=== PATIENT | male | born 1990 | race Hispanic/Latino ===

== ENCOUNTER → 2025-02-28 14:22 | Outpatient (REF) | payer OTHER, SELFPAY ==
[2025-02-28 15:05] LABS: % Basophils 0.7 % (0-2); % Eosinophils 0.5 % (0-6); % Immature Granulocytes 0.6 % (0-0.5); % Lymphocytes 15.1 % (20.5-51.1); % Monocytes 5.4 % (1.7-9.3); % Neutrophils 77.7 % (42.2-75.2); Absolute Basophils 0.1 10^3/uL (0-0.2); Absolute Eosinophils 0.1 10^3/uL (0-0.7); Absolute Immature Granulocytes 0.1 10^3/uL (0-0.05); Absolute Lymphocytes 1.9 10^3/uL (1.2-3.4); Absolute Monocytes 0.7 10^3/uL (0.1-0.6); Absolute Neutrophils 9.6 10^3/uL (1.4-6.5); Hematocrit 41.9 % (39.0-52.0); Mean Corp Hgb Conc. 33.4 g/dL (33.0-37.0); Mean Corpuscular Hgb 28.9 pg (27.0-31.0); Mean Corpuscular Volume 86.4 fL (80.0-94.0); Mean Platelet Volume 9.2 fL (7.4-10.4); Nucleated Red Blood Cells % 0 % (-); Platelet Count 370 10^3/uL (130-400); Red Blood Cell Count 4.85 10^6/uL (4.70-6.10); Red Cell Dist. Width 13.3 % (11.5-14.5); White Blood Cell Count 12.3 10^3/uL (4.8-10.8)
[2025-02-28 15:18] LABS: Erythrocyte Sed Rate 33 mm/hour (0-20)
[2025-02-28 15:29] LABS: ALT (SGPT) 30 U/L (0-50); AST (SGOT) 19 U/L (17-59); Albumin 4.6 g/dl (3.5-5.0); Alkaline Phosphatase 111 U/L (38-126); Blood Urea Nitrogen 11 mg/dl (9-20); Calcium 9.8 mg/dl (8.4-10.2); Carbon Dioxide 27 mmol/L (22-30); Chloride 101 mmol/L (98-107); Glucose 92 mg/dl (70-99); Potassium 4.3 mmol/L (3.5-5.1); Sodium 140 mmol/L (135-145); Total Bilirubin 0.5 mg/dl (0.2-1.3); Total Protein 8.1 g/dl (6.3-8.2); eGFR > 60.00
[2025-03-01 17:22] LABS: Creatine Phosphokinase 85 U/L (55-170)
[2025-03-02 15:23] LABS: ANA, IgG Reflex to HEp-2 None Detected (None Detected)
[2025-03-02 15:25] LABS: Lyme Antibody Screen, EIA Negative (Negative)
[2025-03-03 08:26] LABS: Parvo B19 Ab, IgM 0.45 IV (<=0.89); Parvo Virus B19 Ab, IgG 0.55 IV (<=0.90)
== END ==
LOC: CLINIC 14:22
PROVIDERS: ATTENDING PHYSICIAN Nurse Practitioner Adult Health
DX: R21 Rash and other nonspecific skin eruption (principal); R50.9 Fever, unspecified
CPT/HCPCS: 80053; 82550; 85025; 85652; 86038; 86140; 86618; 86747; 86780

== ENCOUNTER 2025-03-03 11:51 | Inpatient (IN) | payer OTHER, SELFPAY ==
[2025-03-03] VITALS (13 sets, daily range): BP systolic 92–144; BP diastolic 67–96; BMI 30.1
--- NOTE | 2025-03-03 08:12 | ED.GENMED ---
History of Present Illness
General
Chief Complaint: Cardiac Symptoms
Source: patient
Exam Limitations: none
Time Seen by Provider: 03/03/25 07:52
Nursing documentation reviewed up to this point in time: agreed with
History of Present Illness
History of Present Illness:
Patient presents to ED secondary to persistent fever with night sweats and body ache over the past 10 days. Patient reports fever last night and taking Tylenol at 11 PM. Denies headache. Denies dizziness. Denies coughing. Denies sore throat.
Denies difficulty with urination. Denies nausea, vomiting, or diarrhea. Denies recent travel. Denies recent sick contact. Denies loss of appetite. Denies chest pain. Patient's recent history is significant for dental extraction 2 months ago.
Patient has been evaluated by his primary care physician on multiple occasions, including outpatient blood work. In light of patient's persistent symptoms, with development of rash, some painful, patient referred to ED for an evaluation and
potential admission for further evaluation and treatment.
Review of Systems
Review of Systems
Allergies reviewed?: Yes
All Other Systems: ROS reviewed and negative except as documented in HPI and ROS
Constitutional: Reports fever
EENT: Reports no symptoms; Denies mouth pain
Respiratory: Reports no symptoms; Denies cough or trouble breathing
Cardiac: Reports no symptoms; Denies chest pain or palpitations
ABD/GI: Reports no symptoms; Denies nausea, vomiting or diarrhea
: Reports no symptoms
Musculoskeletal: Reports muscle pain
Skin: Reports rash; Denies itching
Neurological: Reports no symptoms; Denies dizzy or headache
Phy Exam
Physical Exam
Physical Exam:
Physical Exam
General: no apparent distress, not acutely ill. afebrile
Head: nc/at. eomi
Neck: supple. no meningeal signs. normal posterior pharynx
Heart: s1/s2 regular rate and rhythm, no murmur.
Lungs: no acute respiratory distress. clear bilaterally
Abdomen: normal bowel sounds. not tender.
Neuro: alert and oriented x 3. no focal neurological deficits
Skin: multiple maculopapular rash noted over trunk/extremities, non-painful raised alex lesions noted over right anterior hess. painful macular lesion noted along lateral aspect of left foot, along 5th MTP, without
drainage.
Psychiatric: well kept. interactive and cooperative
Extremities: no edema. no calf tenderness.
Course
Orders/Labs/Results
Orders:
Orders
03/03/25 07:31
Electrocardiogram (*1) Urgent
Reason for Study: Abnormal EKG
EKG- Treatment ONCE
03/03/25 08:11
Urinalysis Reflex To Culture Urgent
Date Specimen was Collected: 03/03/25
Time Specimen was Collected: 08:17
CR Chest - 2 Views Urgent
Comment:
Reason For Exam: fever
03/03/25 08:15
Lactic Acid Q4H
Comment: CANCEL 2nd LACTIC ACID IF 1st LACTIC ACID IS LESS THAN 2
03/03/25 08:26
COVID-19 Antigen Urgent
Source: Nasal Swab
Complete Blood Count/With Diff Urgent
Comprehensive Metabolic Panel Urgent
Lactic Acid Q4H
Comment: CANCEL 2nd LACTIC ACID IF 1st LACTIC ACID IS LESS THAN 2
Blood Culture Q30M
AIMEE Source: Blood/Venous
Specimen Description:
Influenza A+B Rapid Molecular Urgent
AIMEE Source: Nasal Swab
Specimen Description:
03/03/25 08:27
Blood Culture Q30M
AIMEE Source: Blood/Venous
Specimen Description:
03/03/25 09:05
INFECTIOUS DISEASE CONSULT Routine
Consulting Provider: Conner Randolph
Was physician already notified: Yes
03/03/25 11:12
Admit/Transfer Patient As Directed
Co-Sign Provider:
Level of Care: Inpatient admission
Assign to:: Medical/Surgical
Physician / Group: True/hospitalist
Diagnosis: possible sepsis
Reason for Hospitalization: possible sepsis
Expected length of stay greater than two midnights?: Yes
ELOS- Estimated Length of Stay in days: 3
I certify the patient meets the requirements for IP care: Yes
Code Status As Directed
Resuscitation Status: Full Code
PRN Pain Medication Management As Directed
May give lesser potent ordered pain med per pt: Yes
preference::
Protocol:: Medication orders for pain may be administered in a
manner that supports deferring to patient preference
when the pt is:
- Requesting an ordered lesser potent pain medication.
Least to most potent pain medications are defined
as: acetaminophen < NSAID < tramadol < opioids
(morphine, oxycodone, hydromorphone).
- Requesting a lesser dose of the same medication IF
ORDERED.
- Requesting a less intrusive route of administration
if both routes are prescribed by the provider (PO <
IV).
Abnormal Lab Results
03/03/25
08:26
WBC 11.4 H 10^3/uL
(4.8-10.8)
Abs Immat Gran (auto) 0.1 H 10^3/uL
(0-0.05)
Absolute Neuts (auto) 8.5 H 10^3/uL
(1.4-6.5)
Absolute Monos (auto) 0.7 H 10^3/uL
(0.1-0.6)
Immature Gran % 0.7 H %
(0-0.5)
Lymphocytes % 17.5 L %
(20.5-51.1)
03/03/25 08:26
03/03/25 08:26
Vital Signs
Initial and Last Documented VS:
Initial Vital Signs
Temp Pulse Resp BP Pulse Ox
98.5 F 104 18 144/96 98
03/03/25 07:27 03/03/25 07:27 03/03/25 07:27 03/03/25 07:27 03/03/25 07:27
Last Documented Vital Signs
Temp Pulse Resp BP Pulse Ox
98.5 F 89 25 117/77 98
03/03/25 07:27 03/03/25 12:00 03/03/25 12:00 03/03/25 12:00 03/03/25 12:00
MDM/Problems Addressed
MDM/Problems Addressed:
In light of patient's persistent symptoms, despite outpatient workup, patient will be admitted for further evaluation and treatment.
Blood culture pending. If there is no clear focal source of infection, antibiotics will be withheld for now.
*Critical Care Note
Total Time (30-74mins, 75-104mins- exclusive of procedures): Not Applicable
ED Attending Note
-
Portions of this chart may have been created with voice recognition software.� Occasional wrong word or��sound alike� substitutions may have occurred due to the inherent limitations of voice recognition software.
Discharge Plan
Departure
Patient Disposition: Admit
Date of Disposition: 03/03/25
Time of Disposition: 08:58
Admit to: Med/Surg
Presentation/result/management discussed w/ accepting MD/DO: Hospitalist
Discharge Problem:
Fever
Interventions
Interventions:
*Risk Screen - Suicide Last Done: 03/03/25 07:27
*General Assessment Last Done: 03/03/25 07:27
*Neglect/Abuse Screening Last Done: 03/03/25 07:27
*ED- Fall Risk Assessment Last Done: 03/03/25 07:49
*ED COVID-19 Vaccine History Last Done: 03/03/25 07:49
ED- Pulmonary Assessment Last Done: 03/03/25 07:49
ED- Cardiac Assessment Last Done: 03/03/25 07:49
[2025-03-03 08:42] LABS: % Basophils 0.5 % (0-2); % Eosinophils 0.4 % (0-6); % Immature Granulocytes 0.7 % (0-0.5); % Lymphocytes 17.5 % (20.5-51.1); % Monocytes 6.3 % (1.7-9.3); % Neutrophils 74.6 % (42.2-75.2); Absolute Basophils 0.1 10^3/uL (0-0.2); Absolute Eosinophils 0.1 10^3/uL (0-0.7); Absolute Immature Granulocytes 0.1 10^3/uL (0-0.05); Absolute Monocytes 0.7 10^3/uL (0.1-0.6); Absolute Neutrophils 8.5 10^3/uL (1.4-6.5); Hematocrit 41.7 % (39.0-52.0); Hemoglobin 14.1 g/dL (13.0-18.0); Mean Corp Hgb Conc. 33.8 g/dL (33.0-37.0); Mean Corpuscular Hgb 28.9 pg (27.0-31.0); Mean Corpuscular Volume 85.5 fL (80.0-94.0); Nucleated Red Blood Cells % 0 % (-); Platelet Count 346 10^3/uL (130-400); Red Blood Cell Count 4.88 10^6/uL (4.70-6.10); Red Cell Dist. Width 13.2 % (11.5-14.5); White Blood Cell Count 11.4 10^3/uL (4.8-10.8)
[2025-03-03 08:52] LABS: COVID-19 Antigen Negative (Negative)
[2025-03-03 09:07] LABS: Lactic Acid 1.1 mmol/L (0.7-2.0)
[2025-03-03 09:08] LABS: ALT (SGPT) 31 U/L (0-50); AST (SGOT) 19 U/L (17-59); Albumin 4.1 g/dl (3.5-5.0); Alkaline Phosphatase 112 U/L (38-126); Blood Urea Nitrogen 11 mg/dl (9-20); Calcium 9.7 mg/dl (8.4-10.2); Carbon Dioxide 28 mmol/L (22-30); Chloride 104 mmol/L (98-107); Estimated Creatinine Clearance > 125 ml/min; Glucose 90 mg/dl (70-99); Potassium 4.4 mmol/L (3.5-5.1); Sodium 142 mmol/L (135-145); Total Bilirubin 0.7 mg/dl (0.2-1.3); Total Protein 7.5 g/dl (6.3-8.2); eGFR > 60.00
--- NOTE | 2025-03-03 10:14 | HPS.HSE ---
Family Physician
-
Family Physician: Adam Young
Chief Complaint
-
fever, night sweat, rash
History of Present Illness
HPI: 34 yo M without significant PMH p/w fever, night sweat, and body ache for ~12 days. He also noted development of erythematous rash throughout his body. Some rash are painful.
Patient's recent history is significant for dental extraction 2 months ago.
He was sent to the ED by the [facility] PCP for concern of subacute bacterial endocarditis.
Medical History
Past Medical History
Past Medical History: Reports None
Past Surgical History: Reports None
Social History
Tobacco: Non-smoker
Alcohol: Occasional
Personal:
Living: With Family
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
Family History
Family History: Not pertinent
Allergies / Home Medications
Allergies reflects when Allergies were last updated in [facility].
Home Medications with original date entered in [facility]
Allergy/Medication List:
Allergies
Allergy/AdvReac Type Severity Reaction Status Date / Time
Fish Containing Products Allergy Unknown Verified 03/03/25 07:26
Home Medications
No Meds [No Current Medications] 03/03/25
Review of Systems
-
Constitutional: Reports Fever
Skin: Reports See HPI
Physical Exam
Vital Signs
Vital Signs
Temp Pulse Resp BP Pulse Ox
36.9 C 92 24 92/67 97
03/03/25 07:27 03/03/25 09:15 03/03/25 09:15 03/03/25 09:14 03/03/25 09:15
Physical Exam
General: Well Developed, Well Nourished, No Apparent Distress, Comfortable and Conversant
HEENT: NormoCephalic, Moist mucous membranes and Atraumatic
Respiratory: Clear and Non Labored Respirations; No Accessory Resp Muscle Use
Cardiac: S1/S2 and Regular Rhythm; No Murmur or Rub
GI: Soft, Non Tender, Non Distended and Normal Bowel Sounds; No Organomegaly
Rectal: Deferred by Provider
Musculoskeletal: No Clubbing, No Cyanosis and No Edema
Skin: Warm, Dry and Rash (generalized erythematous )
Neuro: Awake, Alert, Oriented and Nonfocal/grossly intact
Psych: Calm and Intact Judgment/Insight
Laboratory Results
-
03/03/25 08:26
03/03/25 08:26
Laboratory Results
Lactic Acid 1.1 mmol/L (0.7-2.0) 03/03/25:
Total Bilirubin 0.7 mg/dl (0.2-1.3) 03/03/25 08:
AST 19 U/L (17-59) 03/03/25 08:
ALT 31 U/L (0-50) 03/03/25 08:26
Alkaline Phosphatase 112 U/L (38-126) 03/03/25 08:26
Data Reviewed
-
Lab Data: Labs Reviewed by me
Impression/Plan
-
HPI: 34 yo M without significant PMH p/w fever, night sweat, and body ache for ~12 days. He also noted development of erythematous rash throughout his body. Some rash are painful.
Fever first started 2 months ago after his dental extraction at that time. 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
He was sent to the ED by the [facility] PCP for concern of bacterial endocarditis.
A/P:
# Likely sepsis POA, unclear source but concern for infective endocarditis
Check blood Cx
Check echo
Follow urine Cx
COVID/Flu negative, CXR No acute disease of the chest
Follow syphilis result sent from PCP
noted high CRP at 138 and negative ELVI from outpatient
ID CS
# dental extraction 2 months EDI CONSULTANT
DVT ppx: Lovenox SQ
FC
--- NOTE | 2025-03-03 11:13 | CM ---
Met patient in room along with his and extended family. Patient's PCP is Dr. Shin at [facility]. He works, drives and cares for himself. He lives in 2 level town home. He does not use any DME. No history of VNA, SNF.
Pharmacy: [address]
Plan is home with family.
[2025-03-03 13:13] LABS: Urine Albumin 1+ (Neg - Trace); Urine Bilirubin Negative (Negative); Urine Character Clear (Clear); Urine Color Yellow; Urine Glucose Negative (Negative); Urine Ketone 1+ (Negative); Urine Leukocyte Negative (Negative); Urine Nitrite Negative (Negative); Urine Occult Blood 1+ (Negative); Urine Specific Gravity 1.025 (<1.030); Urine Urobilinogen 2+ (Neg - 1+)
[2025-03-03 13:30] LABS: Urine Mucus Moderate
[2025-03-03 13:31] LABS: Urine Bacteria Few (Negative); Urine White Cell 0-2 /HPF (0-5)
--- NOTE | 2025-03-03 15:17 | CON.ID ---
Consultation
-
Date/Time Consultation Requested: 03/03/25 9:05
Date/Time Consultation Performed: 03/03/25 15:18
Requesting Provider: Dr Biswas
Performing Provider: Dr Rapp
Reason for Consultation: fever, night sweat, rash
Chief Complaint / Past History
Chief Complaint
fever
History of Present Illness
Mr Jose Quiroz is a 34 year old male without significant medical history presenting for about a 12 day history of fever, chills, night sweats, myalgias, erythematous and painful rash. Reports fever started then the next day he noticed the rash -
believes it was generlized from the beginning, blanching, also involving palms and soles. Note a history of dental extraction about 2 months prior to arrival. Denies: headache, cough, sore throat, nausea, vomiting diarrhea, dysuria, sick contacts.
No genital ulcers or drips. No new sexual contacts, reports 1 lifetime sexual partner - his ; they are monogamous. No new joint pains. His reports having all of his vaccines as a child in [facility]. Has small children who are health. Doesnt
spend much time outside.
Since arrival here no recorded fevers - note that T only checked once this AM, BP overall stable, HR 80s, wbc intially 11.4, hgb 14, plt 346, no L shift 02/28 ESR 33, na 142, cr 0.9, lfts wnl, 02/28 CRP 136, UA no pyuria, 02/28 ELVI negative, 02/28
syphilis ordered but not collected, lyme negative, parvo serologies were obtained and were negative, covid ag negative, CXR: no acute disease, influenza screen negative, not currently on antibiotics.
Past History
Past Medical History: None
Past Surgical History: None
Allergy History:
Fish Containing Products Allergy (Verified 03/03/25 07:26)
Unknown
Medications Reviewed: Yes
Social History
Tobacco: Non-Smoker
Alcohol: Occasional
Personal:
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
Family History
Family History: Not Pertinent
Review of Systems
Review of Systems
General: Fever and Chills
All systems: All other systems were reviewed and were negative
Vital Signs
Temp Pulse Resp BP Pulse Ox
98.5 F 92 24 122/72 97
03/03/25 07:27 03/03/25 14:30 03/03/25 14:30 03/03/25 14:00 03/03/25 14:30
Physical Exam
Physical Exam
Constitutional: No Acute Distress and Non-toxic
Pharynx: Other (no oral lesions or koplic spots)
Cardiovascular: Regular Rate and S1/S2; Negative Murmur or Rub
Pulmonary: Clear and Symmetric; Negative Wheezes, Rales or Rhonchi
Gastrointestinal: Soft, Non Tender, Non Distended and Normal Bowel Sounds
Skin: Warm, Dry and Rash (macular, blanching, disseminated, with involvement of the soles of the feet); Negative Jaundice
Neurological: Awake
Lab / Diagnostic Study Results
03/03/25 08:26
03/03/25 08:26
Abs Immat Gran (auto) 0.1 10^3/uL (0-0.05) H 03/03/25 08:26
Absolute Neuts (auto) 8.5 10^3/uL (1.4-6.5) H 03/03/25 08:26
Absolute Lymphs (auto) 2.0 10^3/uL (1.2-3.4) 03/03/25 08:26
Absolute Monos (auto) 0.7 10^3/uL (0.1-0.6) H 03/03/25 08:26
Absolute Basos (auto) 0.1 10^3/uL (0-0.2) 03/03/25 08:26
Immature Gran % 0.7 % (0-0.5) H 03/03/25 08:26
Neutrophils % 74.6 % (42.2-75.2) 03/03/25 08:
Lymphocytes % 17.5 % (20.5-51.1) L 03/03/25 08:
Monocytes % 6.3 % (1.7-9.3) 03/03/25 08:
Eosinophils % 0.4 % (0-6) 03/03/25:
Basophils % 0.5 % (0-2) 03/03/25 08:
Lactic Acid 1.1 mmol/L (0.7-2.0) 03/03/25 08:
Ur Squamous Epith Cells 3-5 /LPF (Few) 03/03/25:
Microbiology Results
Micro:
03/03/25 08:26 Influenza Types A & B (XIOMARA) - Final
Nasal Swab Negative for Influenza A & B, NAAT
Negative results must be combined with clinical observations
and patient history.
Nucleic Acid Amplification test (NAAT)performed on the
[employer] platform.
03/03/25 08:27 Blood Culture - Pending
Blood/Venous
03/03/25 08:26 Blood Culture - Pending
Blood/Venous
Assessment / Plan
FUO
Possible erythema nodosum
- blood cultures x3 ordered, two sets are already in progress
- CRP notably elevated at 133; ESR WNL
- ELVI not detected; parvo serology sent by PCP was negative,
- syphilis screen, HIV screen (patient gives verbal consent), RF, qft gold, ferritin ordered; given age mononuclear screen not recommended
- serum protein electrophoresis ordered
- babesia smear
- resp viral panel
- history is not typical of measles (fevers and rash have persisted 12 days, patient reports he was vaccinated) - would not advise work up at this time
- CT c/a/p
- echo has been done but is not yet read
- after blood cultures are completed then start doxycycline 100 mg PO BID empirically
--- NOTE | 2025-03-03 17:11 | VATNOTE ---
Straight stick LAC for second set cultures.
[2025-03-03] MEDS: LOVENOX 40 MG SC (18:47)
[2025-03-03] MEDS: VIBRAMYCIN 100 MG PO (20:40)
[2025-03-04 00:03] VITALS: BP 116/80
[2025-03-04 07:34] VITALS: BP 133/82
[2025-03-04 07:42] LABS: % Basophils 1.3 % (0-2); % Immature Granulocytes 0.9 % (0-0.5); % Lymphocytes 31.8 % (20.5-51.1); % Monocytes 7.8 % (1.7-9.3); % Neutrophils 56.2 % (42.2-75.2); Absolute Basophils 0.1 10^3/uL (0-0.2); Absolute Eosinophils 0.1 10^3/uL (0-0.7); Absolute Immature Granulocytes 0.1 10^3/uL (0-0.05); Absolute Lymphocytes 1.8 10^3/uL (1.2-3.4); Absolute Monocytes 0.4 10^3/uL (0.1-0.6); Absolute Neutrophils 3.1 10^3/uL (1.4-6.5); Hemoglobin 14.2 g/dL (13.0-18.0); Mean Corpuscular Hgb 28.6 pg (27.0-31.0); Mean Corpuscular Volume 86.7 fL (80.0-94.0); Mean Platelet Volume 9.2 fL (7.4-10.4); Nucleated Red Blood Cells % 0 % (-); Platelet Count 370 10^3/uL (130-400); Red Blood Cell Count 4.96 10^6/uL (4.70-6.10); Red Cell Dist. Width 13.4 % (11.5-14.5); White Blood Cell Count 5.5 10^3/uL (4.8-10.8)
[2025-03-04] MEDS: VIBRAMYCIN 100 MG PO ×2 (08:05→21:21)
[2025-03-04] MEDS: OMNIPAQUE 50 ML PO (08:05)
[2025-03-04 08:08] LABS: Blood Urea Nitrogen 13 mg/dl (9-20); Calcium 9.6 mg/dl (8.4-10.2); Carbon Dioxide 29 mmol/L (22-30); Chloride 105 mmol/L (98-107); Estimated Creatinine Clearance > 125 ml/min; Glucose 103 mg/dl (70-99); Magnesium 2.3 mg/dl (1.6-2.3); Potassium 4.8 mmol/L (3.5-5.1); Sodium 143 mmol/L (135-145); eGFR > 60.00
--- NOTE | 2025-03-04 10:37 | W.PN.HOSP.TC ---
Today's Communication/Plan
-
see A/P
Assessment / Plan
Assessment / Plan
HPI: 34 yo M without significant PMH p/w fever, night sweat, and body ache for ~12 days. He also noted development of erythematous rash throughout his body. Some rash are painful.
Fever first started 2 months ago after his dental extraction at that time. 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
[facility].
A/P:
# Likely sepsis POLAURA PaigeO, concern for infective endocarditis
Follow blood Cx
Follow blood smear
echo unrevealing: no valve vegetation seen
COVID/Flu negative, CXR No acute disease of the chest, Viral panel negative,
Follow syphilis result from PCP, HIV and TB test
Follow serum protein electrophoresis
Check CT CAP
parvo serology and Lyme serology sent by PCP was negative,
noted high CRP 138 and negative ELVI from outpatient
appreciate ID input
Pt has been started with doxycycline
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
DVT ppx: Lovenox SQ
FC
Anticipated Discharge: 24 - 48 hours
Subjective/Interval History
-
Date of Service: March 04, 2025
Objective Data
-
Labs:
Laboratory Results
03/04/25 03/04/25
07:10 07:11
WBC 5.5
Hgb 14.2
Hct 43.0
Plt Count 370
Sodium 143
Potassium 4.8
Chloride 105
Carbon Dioxide 29
BUN 13
Creatinine 0.9
Glucose 103 H
Calcium 9.6
Vital Signs:
Vital Signs
Temp Pulse Resp BP Pulse Ox
36.9 C 83 17 133/82 98
03/04/25 07:34 03/04/25 07:34 03/04/25 07:34 03/04/25 07:34 03/04/25 07:34
Review of Systems
-
History Source: Patient
All other systems: Reviewed and negative
Physical Exam
-
General: Well Developed, Well Nourished, No Apparent Distress, Comfortable and Conversant; Negative Respiratory Distress
HEENT: Normocephalic, Atraumatic, Nose Appears Normal and Ears Appear Normal; Negative Oxygen
Respiratory: Clear to Auscultation and Non Labored Respirations; Negative Accessory Resp Muscle Use
Cardiac: Regular Rhythm and S1/S2
GI: Soft, Nontender, Nondistended and Normal Bowel Sounds
Skin: Warm and Dry
Neuro: Awake, Alert, Oriented, AO x 3 and Nonfocal/Grossly Intact
Psych: Calm and Intact Judgement/Insight
Data Reviewed
-
Labs: Labs Reviewed by me
[2025-03-04 11:14] LABS: Syphilis/T. pallidum Ab Reflex Negative (Negative)
[2025-03-04 13:33] LABS: HIV Combo Negative (Negative)
[2025-03-04 15:28] VITALS: BP 127/80
--- NOTE | 2025-03-04 16:46 | CM ---
Chart reviewed mallory tto follow up with [facility] after discharge.
Plan; Home when stable with family
[2025-03-04] MEDS: LOVENOX 40 MG SC (17:45)
[2025-03-04 23:35] VITALS: BP 129/76
[2025-03-05 08:25] VITALS: BP 125/78
[2025-03-05 08:40] LABS: % Basophils 1.3 % (0-2); % Eosinophils 1.3 % (0-6); % Immature Granulocytes 0.9 % (0-0.5); % Lymphocytes 31.4 % (20.5-51.1); % Monocytes 5.2 % (1.7-9.3); % Neutrophils 59.9 % (42.2-75.2); Absolute Basophils 0.1 10^3/uL (0-0.2); Absolute Eosinophils 0.1 10^3/uL (0-0.7); Absolute Immature Granulocytes 0.1 10^3/uL (0-0.05); Absolute Monocytes 0.3 10^3/uL (0.1-0.6); Absolute Neutrophils 3.8 10^3/uL (1.4-6.5); Hematocrit 45.3 % (39.0-52.0); Hemoglobin 14.9 g/dL (13.0-18.0); Mean Corp Hgb Conc. 32.9 g/dL (33.0-37.0); Mean Corpuscular Hgb 28.9 pg (27.0-31.0); Mean Corpuscular Volume 87.8 fL (80.0-94.0); Mean Platelet Volume 9.4 fL (7.4-10.4); Nucleated Red Blood Cells % 0 % (-); Platelet Count 491 10^3/uL (130-400); Red Blood Cell Count 5.16 10^6/uL (4.70-6.10); Red Cell Dist. Width 13.2 % (11.5-14.5); White Blood Cell Count 6.4 10^3/uL (4.8-10.8)
[2025-03-05] MEDS: VIBRAMYCIN 100 MG PO ×2 (08:53→20:10)
[2025-03-05 08:55] LABS: Blood Urea Nitrogen 15 mg/dl (9-20); Carbon Dioxide 28 mmol/L (22-30); Chloride 103 mmol/L (98-107); Estimated Creatinine Clearance 115 ml/min; Glucose 105 mg/dl (70-99); Magnesium 2.3 mg/dl (1.6-2.3); Potassium 4.6 mmol/L (3.5-5.1); Sodium 143 mmol/L (135-145); eGFR > 60.00
--- NOTE | 2025-03-05 10:59 | W.PN.HOSP.TC ---
Today's Communication/Plan
-
Doing well.
Assessment / Plan
Assessment / Plan
34 yo M without significant PMH p/w fever, night sweat, and body ache for ~12 days. He also noted development of erythematous rash throughout his body. Some rash are painful.
Fever first started 2 months ago after his dental extraction at that time. 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
He was sent to the ED by the [facility] PCP for concern of bacterial endocarditis.
A/P:
1. Likely sepsis POA, FUO, concern for infective endocarditis
Follow blood Cx - should have final result tomorrow
If negative, may be OK to d/c home tomorrow
blood smear - negative for organisms
echo unrevealing: no valve vegetation seen
COVID/Flu negative, CXR No acute disease of the chest, Viral panel negative,
Follow syphilis result from PCP, HIV and TB test
Follow serum protein electrophoresis
CT CAP:
No acute findings within chest, abdomen, or pelvis.
Questionable punctate nephrolith within the midpole of the left kidney.
parvo serology and Lyme serology sent by PCP was negative,
noted high CRP 138 and negative ELVI from outpatient
appreciate ID input
Pt has been started with doxycycline
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
DVT ppx: Lovenox SQ
FC
Anticipated Discharge: 24 - 48 hours
Subjective/Interval History
-
Date of Service: March 05, 2025
Feels overall better and rash is improved.
Objective Data
-
Labs:
Laboratory Results
03/05/25
07:26
WBC 6.4
Hgb 14.9
Hct 45.3
Plt Count 491 H D
Sodium 143
Potassium 4.6
Chloride 103
Carbon Dioxide 28
BUN 15
Creatinine 1.0
Glucose 105 H
Calcium 10.0
Vital Signs:
Vital Signs
Temp Pulse Resp BP Pulse Ox
98.1 F 84 18 125/78 100
03/05/25 08:25 03/05/25 08:25 03/05/25 08:25 03/05/25 08:25 03/05/25 08:25
I&O
03/04/25 03/05/25 03/06/25
06:59 06:59 06:59
Intake Total 800 / 800
Balance 800 / 800
Review of Systems
-
History Source: Patient
All other systems: Reviewed and negative
Physical Exam
-
General: Well Developed, Well Nourished, No Apparent Distress and Comfortable
HEENT: Normocephalic, Atraumatic, Moist Mucous Membranes, PERRLA, Nose Appears Normal and Ears Appear Normal
Respiratory: Clear to Auscultation
Cardiac: Regular Rhythm and S1/S2
GI: Soft, Nontender and Nondistended
Musculoskeletal: No Clubbing, No Cyanosis and No Edema
Neuro: Awake, Alert, Oriented and AO x 3
Psych: Calm
Data Reviewed
-
Labs: Labs Reviewed by me
--- NOTE | 2025-03-05 14:25 | W.PN.ID1 ---
Date of Service
Date of Service: March 05, 2025
Today's Communication
Continue antibiotics
Assessment / Plan
FUO
Possible erythema nodosum
- blood cultures no growth to date.
- CRP notably elevated at 133; ESR WNL
- ELVI not detected; parvo serology sent by PCP was negative,
- syphilis screen & HIV screen negative. RF, qft gold, ferritin ordered; given age mononuclear screen not recommended
- serum protein electrophoresis ordered
- babesia smear negative
- resp viral panel negative
- history is not typical of measles (fevers and rash have persisted 12 days, patient reports he was vaccinated) - would not advise work up at this time
- CT c/a/p
- echo without evidence of vegetation.
- Continue doxycycline for today.
Chief Complaint
-: Fever
Subjective / Review of Systems
Review of Systems: No Fever and No Chills
Vital Signs / Physical Exam
Vital Signs
Vital Signs
Temp Pulse Resp BP Pulse Ox
98.1 F 84 18 125/78 100
03/05/25 08:25 03/05/25 08:25 03/05/25 08:25 03/05/25 08:25 03/05/25 08:25
Physical Exam
Constitutional: No Acute Distress, Comfortable and Non-toxic
Eyes: Sclera Anicteric
Cardiovascular: S1/S2; Negative S3/S4
Pulmonary: Non Labored
Gastrointestinal: Soft and Non Tender
Skin: Negative Rash
Neurological: Awake and Alert
Psychological: Calm
Objective Data
Lab Data
Lab Results
03/05/25 07:26
03/05/25 07:26
Estimated Creat Clear 115 ml/min 03/05/25 07:26
Lactic Acid 1.1 mmol/L (0.7-2.0) 03/03/25 08:26
Total Bilirubin 0.7 mg/dl (0.2-1.3) 03/03/25 08:26
AST 19 U/L (17-59) 03/03/25 08:26
ALT 31 U/L (0-50) 03/03/25 08:26
Alkaline Phosphatase 112 U/L (38-126) 03/03/25 08:26
Most recent labs reviewed.
Micro Results:
03/03/25 08:26 Blood Culture - Preliminary
Blood/Venous No Growth in 48 hours- Final report to follow
03/03/25 08:27 Blood Culture - Preliminary
Blood/Venous No Growth in 48 hours- Final report to follow
03/04/25 07:11 Blood Culture - Preliminary
Blood/Venous No Growth in 24 hours- Final report to follow
03/03/25 17:08 Blood Culture - Preliminary
Blood/Venous No Growth in 24 hours- Final report to follow
03/04/25 07:11 Blood Parasites Smear - Final
Blood/Venous
03/03/25 18:21 Influenza Type A (PCR) - Final
Nasalpharynx Not Detected
Influenza Type A (H1) (PCR) - Final
Not Detected
Influenza Type A (H3) (PCR) - Final
Not Detected
Influenza Type B (PCR) - Final
Not Detected
Resp Syncytial Virus Type A (PCR) - Final
Not Detected
Resp Syncytial Virus Type B (PCR) - Final
Not Detected
Adenovirus DNA (PCR) - Final
Not Detected
Human Metapneumovirus (PCR) - Final
Not Detected
Parainfluenza Virus Type 1 (PCR) - Final
Not Detected
Parainfluenza Virus Type 2 (PCR) - Final
Not Detected
Parainfluenza Virus Type 3 (PCR) - Final
Not Detected
Parainfluenza Virus Type 4 - Final
Not Detected
Rhinovirus (PCR) - Final
Not Detected
03/03/25 08:26 Influenza Types A & B (XIOMARA) - Final
Nasal Swab Negative for Influenza A & B, NAAT
Negative results must be combined with clinical observations
and patient history.
Nucleic Acid Amplification test (NAAT)performed on the
[employer] platform.
[2025-03-05 15:00] VITALS: BP 127/83
[2025-03-05] MEDS: LOVENOX 40 MG SC (16:57)
[2025-03-05 23:29] VITALS: BP 129/84
[2025-03-06 04:06] LABS: Quantiferon Mitogen minus NIL 9.96 IU/mL; Quantiferon NIL 0.04 IU/mL; Quantiferon Plus TB1 minus NIL 0.02 IU/mL (<=0.34); Quantiferon TB Gold Plus Negative (Negative)
[2025-03-06 07:03] LABS: % Basophils 1.1 % (0-2); % Eosinophils 1.7 % (0-6); % Immature Granulocytes 0.9 % (0-0.5); % Lymphocytes 35.9 % (20.5-51.1); % Monocytes 5.1 % (1.7-9.3); % Neutrophils 55.3 % (42.2-75.2); Absolute Basophils 0.1 10^3/uL (0-0.2); Absolute Eosinophils 0.1 10^3/uL (0-0.7); Absolute Immature Granulocytes 0.1 10^3/uL (0-0.05); Absolute Lymphocytes 1.9 10^3/uL (1.2-3.4); Absolute Monocytes 0.3 10^3/uL (0.1-0.6); Absolute Neutrophils 2.9 10^3/uL (1.4-6.5); Hematocrit 44.6 % (39.0-52.0); Hemoglobin 14.7 g/dL (13.0-18.0); Mean Corpuscular Hgb 28.9 pg (27.0-31.0); Mean Corpuscular Volume 87.8 fL (80.0-94.0); Nucleated Red Blood Cells % 0 % (-); Platelet Count 422 10^3/uL (130-400); Red Blood Cell Count 5.08 10^6/uL (4.70-6.10); Red Cell Dist. Width 13.1 % (11.5-14.5); White Blood Cell Count 5.3 10^3/uL (4.8-10.8)
[2025-03-06 07:26] LABS: Blood Urea Nitrogen 16 mg/dl (9-20); Calcium 9.8 mg/dl (8.4-10.2); Carbon Dioxide 31 mmol/L (22-30); Chloride 106 mmol/L (98-107); Estimated Creatinine Clearance 115 ml/min; Glucose 90 mg/dl (70-99); Sodium 144 mmol/L (135-145); eGFR > 60.00
[2025-03-06 08:05] VITALS: BP 117/79
--- NOTE | 2025-03-06 09:48 | W.DCSUMMARY ---
Discharge Summary
Discharge Data
Date of Admission: 03/03/25
Date of Discharge: 03/06/25
Total time spent discharging patient (in min): 45
-
Pending Results: Yes
Hospital Course
Principal Diagnosis:
Fever of unknown origin
Chronic Diagnoses:�
None
Recent tooth extraction
Consultations:�
Infectious disease
Procedures:�
None
Clinical course:�
34 yo man without significant PMH p/w fever, night sweat, and body ache for ~12 days. He also noted development of erythematous rash throughout his body. Some rash are painful.
Fever first started 2 months ago after his dental extraction at that time. Fever resolved but occurred again 12 days [employer].
He was sent to the ED by the [facility] PCP for concern of bacterial endocarditis.
1. Likely sepsis, POA, FUO, concern for infective endocarditis. Patient seen by ID who summarized the case as follows:
'FUO
Possible erythema nodosum
- blood cultures no growth to date.
- CRP notably elevated at 133; ESR WNL
- ELVI not detected; parvo serology sent by PCP was negative,
- syphilis screen & HIV screen negative. RF, qft gold, ferritin ordered; given age mononuclear screen not recommended
- serum protein electrophoresis ordered
- babesia smear negative
- resp viral panel negative
- history is not typical of measles (fevers and rash have persisted 12 days, patient reports he was vaccinated) - would not advise work up at this time
- CT c/a/p
- echo without evidence of vegetation.'
Follow up on the 'Questionable punctate nephrolith within the midpole of the left kidney.'
note that there was a high CRP 138 and negative ELVI from outpatient
Pt has been started with doxycycline and should finish a 21 day total course
As for the rest of his medical problems, they were stable during his hospital stay.
DVT ppx during admit was Lovenox SQ
He was full code
Discharge Plan
-
Patient Disposition: Home (Routine Discharge)
Discharge Diagnosis/Procedures: Fever of unknown origin
Diet: As tolerated
Activity: No restrictions
Driving Restrictions: As prior to admission
Bathing Restrictions: None
Referrals:
Adam Young MD [Family Provider] -
Prescriptions:
New
doxycycline hyclate 100 mg Capsule
100 mg PO Q12 Qty: 36 0RF
Discharge Orders:
Discharge Patient (As Directed); Ordered 03/06/25
Ordered By: Guido Madrigal
Discharge Date and Time
Print Language: MALAWIAN
[2025-03-06] MEDS: VIBRAMYCIN 100 MG PO (10:18)
[2025-03-06] MEDS: AFLURIA (36 mos+) 2024-2025 FORMULA 0.5 ML IM (10:19)
[2025-03-08 09:11] LABS: Albumin 3.69 g/dL (3.75-5.01); Alpha 1 Globulin 0.45 g/dL (0.19-0.46); Alpha 2 Globulin 1.02 g/dL (0.48-1.05); SPEP IFE Reflex Not Done; Total Protein-Electrophoresis 7.5 g/dL (6.3-8.2)
== END 2025-03-06 10:33 | disposition home or self-care (01) | DRG 871 ==
LOC: 4 WEST ACU 11:51
PROVIDERS: ADMITTING PHYSICIAN Internal Medicine; ATTENDING PHYSICIAN Internal Medicine; EMERGENCY PHYSICIAN Emergency Medicine; FAMILY PHYSICIAN Family Medicine; OTHER PHYSICIAN Student in an Organized Health Care Education/Training Program
PROC: 3E02340 Introduction of Influenza Vaccine into Muscle, Percutaneous Approach (ICD-10-PCS; 2025-03-06)
DX: A41.9 Sepsis, unspecified organism (principal); I33.0 Acute and subacute infective endocarditis; Z11.52 Encounter for screening for COVID-19; Z23 Encounter for immunization
CPT/HCPCS: 71046; 71260; 74177; 80048; 80053; 81003; 81015; 82728; 83605; 83735; 84155; 84165; 85025; 86480; 86780; 87015; 87040; 87207; 87389; 87502; 87633; 87811; 90686; 93005; 93306; 99285; G0008; Q9967

== ENCOUNTER → 2025-03-22 17:16 | Outpatient (REF) | payer OTHER, SELFPAY ==
[2025-03-22 17:38] LABS: % Basophils 1.5 % (0-2); % Eosinophils 2.6 % (0-6); % Immature Granulocytes 0.3 % (0-0.5); % Lymphocytes 34.6 % (20.5-51.1); % Monocytes 7.9 % (1.7-9.3); % Neutrophils 53.1 % (42.2-75.2); Absolute Basophils 0.1 10^3/uL (0-0.2); Absolute Eosinophils 0.2 10^3/uL (0-0.7); Absolute Lymphocytes 2.1 10^3/uL (1.2-3.4); Absolute Monocytes 0.5 10^3/uL (0.1-0.6); Absolute Neutrophils 3.2 10^3/uL (1.4-6.5); Hematocrit 40.8 % (39.0-52.0); Hemoglobin 13.6 g/dL (13.0-18.0); Mean Corp Hgb Conc. 33.3 g/dL (33.0-37.0); Mean Corpuscular Hgb 29.1 pg (27.0-31.0); Mean Corpuscular Volume 87.4 fL (80.0-94.0); Mean Platelet Volume 9.6 fL (7.4-10.4); Nucleated Red Blood Cells % 0 % (-); Platelet Count 296 10^3/uL (130-400); Red Blood Cell Count 4.67 10^6/uL (4.70-6.10); Red Cell Dist. Width 14.1 % (11.5-14.5); White Blood Cell Count 6.1 10^3/uL (4.8-10.8)
[2025-03-22 17:56] LABS: C-Reactive Protein < 5.00 mg/L (0.0-10.00)
== END ==
LOC: CLINIC 17:16
PROVIDERS: ATTENDING PHYSICIAN Family Medicine
DX: R21 Rash and other nonspecific skin eruption (principal); D72.829 Elevated white blood cell count, unspecified; R79.82 Elevated C-reactive protein (CRP); Z98.890 Other specified postprocedural states; R50.9 Fever, unspecified
CPT/HCPCS: 36415; 85025; 86140